=== PATIENT | female | born 1985 ===

== ENCOUNTER 2020-07-12 20:00 | Inpatient (IN) | payer BC ==
[2020-07-12] MEDS ORDERED: hydrALAZINE 20 MG/ML VIAL SLOW IVP PRN ×2 (20:39→21:00)
--- NOTE | 2020-07-12 20:50 | PDOC.LDHP ---
Labor and Delivery H&P Chief complaint: loss of fluid HPI: Patient is a 35 yo at 36.1 wga who presents with complaint of loss of fluid. She states she lost her mucous plug around 0600 this morning, then continued to see discharge and was wet each time she wiped throughout the day. She has felt some tightening of her lower abdomen occasionally, although this has been ongoing for a few weeks now. She follows with Dr. Stein, is currently rescheduled for a rLTCS on Aug 01 (SANDRA 08/08/20). Denies any vaginal bleeding, foul odor, burning, dysuria, chest pain, abdominal pain, headache, SOB. Patient denies any complications with this , says she passed her glucose test. Has not had GBS swab done yet. Is taking PNVs. Still feeling baby move. Current gestational age (weeks): 36 (36.1) Due date: 08/08/20 Dating criteria: last menstrual period Grav: 2 Para: 1 (1001) Current complications: none Past Medical History: denies Current medications: pre-manny vitamins Previous surgical history: low tranverse CS (x1) Allergies/Adverse Reactions: Allergies Allergy/AdvReac Type Severity Reaction Status Date / Time No Known Allergies Allergy Verified 07/12/20 20:47 Social history: none - Physical Exam Vital signs reviewed and normal: yes General: resting Lungs: nonlabored breathing Abdomen: NTTP Extremeties: no edema FHT: category 1 [place] contractions every: occasional - OB Labs Blood type: unknown RH: unknown Antibody Screen: unknown HIV: unknown RPR: unknown HEPSAg: unknown GBS: unknown - Assessment Patient is a 35 yo at 36.1 wga who presents with possible LOF: #Third Trimester , r/o ROM -SANDRA of 08/08/20, has scheduled rLTCS on 08/01/20 -follows with Dr. Stein -taking PNVs -sterile speculum exam reveals small amount of fluid, no overt pooling -will send amnisure swab -place on continuous external monitoring Dispo: Obtain amnisure. Place on monitoring. ADDENDUM, 07/12/20, 2100 Amnisure is positive. Suspect PROM. Will plan to admit and continue to monitor on L&D, ultimately will deliver with rLTCS. The above H&P was discussed with Dr. Manuel who agrees with plan. Inna Quick DO, PGY-2 Addendum - Attending - Attending Attestation Date/Time: 07/12/202200 I personally evaluated the patient and discussed the management with Dr. Quick. I agree with the History, Examination, Assessment and Plan documented above.
[2020-07-12 20:51] LABS: Amnisure Test RUPTURE DETECTED (No Rupture)
[2020-07-12 20:52] LABS: Amnisure Internal Control QC ACCEPTABLE (ACCEPTABLE)
[2020-07-12 20:54] VITALS: BMI 30.6
[2020-07-12] MEDS ORDERED: Azithromycin 500 MG in Sodium Chloride 0.9% 250 ML 250 ML IVPB SCH (21:00)
[2020-07-12] MEDS ORDERED: CEFAZOLIN 2 GM in Premix Bag 1 BAG IVPB SCH (21:00)
[2020-07-12] MEDS ORDERED: Promethazine HCl 25 MG/ML VIAL IM PRN (21:00)
[2020-07-12] MEDS ORDERED: Acetaminophen 500 MG TAB PO PRN (21:00)
[2020-07-12] MEDS ORDERED: Ondansetron PF 4 MG/2 ML Vial IVP PRN (21:00)
[2020-07-12] MEDS ORDERED: Butorphanol Tartrate 1 MG/ML VIAL SLOW IVP PRN (21:00)
[2020-07-12] MEDS ORDERED: Famotidine/PF 20 mg/2ml Vial SLOW IVP PRN (21:00)
[2020-07-12] MEDS ORDERED: Docusate 100 MG CAP PO PRN (21:00)
[2020-07-12] MEDS ORDERED: Bicitra 30 ML UDCUP PO PRN (21:00)
[2020-07-12] MEDS ORDERED: Lactated Ringer's 1,000 ML IV SCH (21:00)
[2020-07-12] MEDS ORDERED: Oxytocin 10 UNITS/ML VIAL ONE ×2 (21:54→23:57)
[2020-07-12] MEDS ORDERED: Ondansetron PF 4 MG/2 ML Vial ONE ×2 (21:54→23:57)
[2020-07-12] MEDS ORDERED: PHENYLEPHRINE-NS 100 MCG/ML 10 ML SYRINGE ONE ×2 (21:54→23:57)
[2020-07-12] MEDS ORDERED: Ketorolac Tromethamine 30 MG/ML VIAL ONE ×2 (21:54→23:57)
[2020-07-12] MEDS ORDERED: Dexamethasone 4 mg/ml Vial ONE ×2 (21:54→23:57)
[2020-07-12] MEDS ORDERED: Morphine PF 10 MG/10 ML VIAL ONE ×2 (21:55→23:57)
[2020-07-12] MEDS ORDERED: Fentanyl 100 MCG/2 ML VIAL ONE ×2 (21:55→23:57)
[2020-07-12 22:08] LABS: Hemoglobin 12.2 g/dL (12.0-16.0); Mean Corpuscular HGB CONC 34.2 g/dL (32.0-36.0); Mean Corpuscular Hemoglobin 30.1 pg (27.0-31.0); Mean Corpuscular Volume 87.9 fL (78.0-98.0); Mean Platelet Volume 9.7 fL (7.4-10.4); Platelet Count 215 thou/uL (130-400); RBC Distribution Width 11.6 % (11.5-14.5); Red Blood Cell (RBC) Count 4.06 mill/uL (4.20-5.40); White Blood Cell (WBC) Count 10.5 thou/uL (4.8-10.8)
[2020-07-12 22:46] LABS: Syphilis Antibody Nonreactive (Nonreactive); Syphilis Antibody Index 0.03 S/CO (<1.00 Non-Reactive)
[2020-07-12 22:47] LABS: HBSAg Index 0.28 S/CO (0-0.99); Hep B Surf Ag Non-Reactive S/CO (NonReactive)
[2020-07-13] MEDS ORDERED: Promethazine HCl 25 MG SUPP PR PRN (01:27)
[2020-07-13] MEDS ORDERED: diphenhydrAMINE 50 MG/ML VIAL IVP PRN (01:27)
[2020-07-13] MEDS ORDERED: Meperidine HCl/PF 25 MG/ML VIAL SLOW IVP PRN (01:27)
[2020-07-13] MEDS ORDERED: HYDROmorphone 2 MG/ML VIAL SLOW IVP PRN (01:27)
[2020-07-13] MEDS ORDERED: Ondansetron PF 4 MG/2 ML Vial IVP PRN ×2 (01:27→04:22)
[2020-07-13] MEDS ORDERED: Naloxone HCl 0.4 mg/ml Vial IV PRN (01:27)
[2020-07-13] MEDS ORDERED: Naloxone HCl 0.4 mg/ml Vial IVP PRN ×2 (01:27)
[2020-07-13] MEDS ORDERED: L&D-Morphine 4 MG/ML VIAL SLOW IVP PRN (01:27)
[2020-07-13] MEDS ORDERED: Ondansetron HCl/PF 4 MG/2 ML Vial IVP PRN (01:27)
[2020-07-13] MEDS ORDERED: Promethazine HCl 25 MG/ML VIAL IM PRN (01:27)
[2020-07-13] MEDS ORDERED: Communication Order-Pharmacy FS SCH (01:30)
--- NOTE | 2020-07-13 02:23 | PDOC.OPDEL ---
OB Operative/Delivery Note Delivery Dr/Surgeon: Scott Pre-Delivery Diagnosis: ruptured membrane Procedure/Post Delivery Dx: repeat low transverse CS Weeks gestation: 36 (36.1) Anesthesia: spinal - Findings A Sex: female - 1 min: 7 - 5 min: 9 - Additional Findings/Plan Placenta delivered: manual removal findings: low transverse hysterotomy without extension, normal uterus, normal tubes, normal ovaries Estimated blood loss: 380 mL Compilations/Other Findings: Date of Procedure: 07/13/2020 Attending Surgeon: Lynn Manuel MD Resident Surgeon: Inna Quick DO, PGY-2 Procedure: Repeat low transverse caesarean section Preoperative Diagnosis: 1) intrauterine at 36.1 weeks gestation 2)Previous x 1 3) PROM Postoperative Diagnosis: 1) intrauterine at 36.1 weeks gestation, now delivered 2)Previous x 2 3) PROM Anesthesia: spinal Indications: The patient is a 35 year old G2,P1001 female at 36.1 weeks gestation who presents for a repeat due to premature rupture of membranes and onset of labor. Procedure in Detail: After risks, benefits, and alternatives were explained to the patient, she gave informed consent. Pre-operative antibiotics included Cefazolin 2 gram IV and Azithromycin 500 mg IV. The patient was taken to the operating room and spinal anesthesia was initiated. She was placed in the supine position with a left tilt and prepped and draped in usual sterile fashion. A Pfannenstiel incision was made with a scalpel and carried down to the level of the fascia which was sharply nicked. The fascial cut was extended bilaterally with Garcia scissors. The inferior and superior edges of the cut fascial edges were elevated with Yoseph clamps and the underlying rectus muscles were sharply and bluntly dissected free. The recti were divided digitally and retracted manually. The peritoneum was entered using Metzembaum scissors and retracted using an Bentley-O retractor. A large adhesion was then taken down using the bovie cautery. A low transverse incision was made with the scalpel and the uterus was entered in the midline with the scalpel. Clear fluid was seen. The hysterotomy was extended manually. An additional area to the lateral left incision was extended using garcia scissors. The was noted to be vertex and was easily delivered by fundal pressure. Mouth and nares were bulb suctioned. Cord clamped and cut and grossly normal female was handed to waiting nurse. Cord blood was obtained. Placenta was manually extracted, found to be intact with 3 vessel cord and discarded. The endometrium was curetted with a dry lap. The uterus was closed with a running locking 1-Monocryl suture followed by a running non-locking 1-Monocryl partial imbricating suture. Following this hemostasis was noted. The abdomen was irrigated with saline and suctioned free of clots. The uterus was internalized and the hysterotomy was again noted to be hemostatic. The fascia was closed with a running non-locking 1-PDS suture. The subcutaneous tissue was irrigated and a few bleeders were bovie cauterized. The subcutaneous tissue was closed with simple interrupted 2-0 Plain gut suture. The skin was approximated with rachael and a pressure dressing was placed. All counts were correct. The patient tolerated the procedure well and was taken to the recovery room in stable condition. Estimated Blood Loss: 380 ml Complications: None Specimens: Cord blood sent to lab for blood type Findings: Grossly normal female infant with Apgars of 7 and 9. Grossly normal placenta with 3 vessel cord discarded. Drains: Luis to gravity draining clear urine Post delivery plan: routine recovery Addendum - Attending - Attending Attestation Date/Time: 07/13/20 [id number] I was present and scrubbed for the entire procedure.
[2020-07-13 03:01] LABS: SARS-CoV-2 PCR by NAA Not Detected (NotDetected)
[2020-07-13] MEDS ORDERED: diphenhydrAMINE 50 MG/ML VIAL ONE (04:18)
[2020-07-13] MEDS ORDERED: Bisacodyl 10 MG SUPP PR PRN (04:22)
[2020-07-13] MEDS ORDERED: Misoprostol 200 MCG TAB PR PRN (04:22)
[2020-07-13] MEDS ORDERED: NS / Oxytocin 40 units/1000ml 1,000 ML IV SCH (04:22)
[2020-07-13] MEDS ORDERED: diphenhydrAMINE 25 MG CAP PO PRN (04:22)
[2020-07-13] MEDS ORDERED: Simethicone Chewable 80 MG TAB PO PRN (04:22)
[2020-07-13] MEDS ORDERED: Acetaminophen 325 MG TAB PO PRN (04:22)
[2020-07-13] MEDS ORDERED: Lanolin Ointment 7 GM TUBE TOP PRN (04:22)
[2020-07-13] MEDS ORDERED: hydrALAZINE 20 MG/ML VIAL SLOW IVP PRN (04:22)
[2020-07-13] MEDS ORDERED: NS w/ Oxytocin 30 units 500 ML IVPB SCH (05:45)
[2020-07-13] MEDS: Ketorolac Tromethamine 30 MG/ML VIAL IVP SCH ×3 (08:16→19:55)
[2020-07-13] MEDS: Prenatal Vitamin 1 TAB PO SCH (08:43)
[2020-07-13] MEDS: Docusate Calcium (SURFAK) 240 MG CAP PO SCH ×2 (08:43→19:55)
[2020-07-13] MEDS: Ferrous Sulfate 325 MG TAB PO SCH ×2 (08:43→19:44)
[2020-07-13] MEDS ORDERED: Adacel (T-DAP) 0.5 ML SYRINGE IM ONE (09:00)
[2020-07-13] MEDS ORDERED: HYDROcodone/Acetaminophen 5/325 mg Tablet PO PRN (13:30)
[2020-07-14] MEDS: Ketorolac Tromethamine 30 MG/ML VIAL IVP SCH (02:06)
[2020-07-14] MEDS ORDERED: Ibuprofen 800 MG TAB PO SCH (06:00)
[2020-07-14 06:18] LABS: Hemoglobin 9.7 g/dL (12.0-16.0); Mean Corpuscular HGB CONC 33.2 g/dL (32.0-36.0); Mean Corpuscular Volume 87.1 fL (78.0-98.0); Mean Platelet Volume 9.5 fL (7.4-10.4); Platelet Count 170 thou/uL (130-400); RBC Distribution Width 11.8 % (11.5-14.5); Red Blood Cell (RBC) Count 3.35 mill/uL (4.20-5.40); White Blood Cell (WBC) Count 12.3 thou/uL (4.8-10.8)
[2020-07-14] MEDS: Docusate Calcium (SURFAK) 240 MG CAP PO SCH ×2 (08:28→20:57)
[2020-07-14] MEDS: Ibuprofen 800 MG TAB PO SCH ×3 (08:28→23:23)
[2020-07-14] MEDS: Ferrous Sulfate 325 MG TAB PO SCH ×2 (08:28→20:57)
[2020-07-14] MEDS: Prenatal Vitamin 1 TAB PO SCH (08:28)
[2020-07-14] MEDS: HYDROcodone/Acetaminophen 5/325 mg Tablet PO PRN ×3 (11:46→20:57)
--- NOTE | 2020-07-14 19:14 | PDOC.PP ---
Post Progress Note Post Day #: 1 PO intake tolerated: yes Flatus: yes Ambulation: yes Vital Signs (12 hours) Temp Pulse Resp BP Pulse Ox 07/14/20 15:59 98.2 F 89 18 159/76 H 99 07/14/20 11:33 98.5 F 78 18 140/72 98 07/14/20 08:14 98.0 F 91 20 124/73 97 Weight Weight 173 lb - Physical Examination General: NAD Respiratory: non-labored breathing Abdominal: no distention, appropriately TTP Fundus firm & at: umb Skin: CS incision dry & intact Neurological: no gross focal deficits Psychiatric: normal affect Result Diagrams: 07/14/20 05:48 Additional Labs: Post Labs Hep Bs Antigen Non-Reactive S/CO (NonReactive) 07/12/20 21:57 Blood Type O POSITIVE 07/12/20 23:23 - Assessment/Plan POD1 s/p RCS VSSAF Doing well pain controlled, met milestones Pt upset as she was just told infant going to nicu for apneic episodes Cont postop care, poss DC home tomorrow.
--- NOTE | 2020-07-15 07:02 | PDOC.PP ---
Post Progress Note Post Day #: 2 PO intake tolerated: yes Flatus: yes Ambulation: yes Vital Signs (12 hours) Temp Pulse Resp BP Pulse Ox 07/14/20 19:40 98.4 F 82 18 139/90 99 Weight Weight 173 lb - Physical Examination General: NAD Respiratory: non-labored breathing Abdominal: no distention, appropriately TTP Fundus firm & at: umb-2 Extremities: negative homans (B) Skin: CS incision dry & intact Neurological: no gross focal deficits Psychiatric: normal affect Result Diagrams: 07/14/20 05:48 Additional Labs: Post Labs Hep Bs Antigen Non-Reactive S/CO (NonReactive) 07/12/20 21:57 Blood Type O POSITIVE 07/12/20 23:23 - Assessment/Plan POD2 s/p RCS VSSAF Met all postop milestones Postop blood loss anemia, asymptomatic, cont PNV on DC Breastpumping, baby in NICU Rh pos RImm DC to B&B
[2020-07-15] MEDS: Docusate Calcium (SURFAK) 240 MG CAP PO SCH ×2 (07:46→20:20)
[2020-07-15] MEDS: HYDROcodone/Acetaminophen 5/325 mg Tablet PO PRN ×3 (07:47→16:31)
[2020-07-15] MEDS: Ferrous Sulfate 325 MG TAB PO SCH ×2 (07:47→20:20)
[2020-07-15] MEDS: Ibuprofen 800 MG TAB PO SCH ×3 (07:47→23:13)
[2020-07-15] MEDS: Prenatal Vitamin 1 TAB PO SCH (07:47)
[2020-07-16] MEDS: Ferrous Sulfate 325 MG TAB PO SCH (08:13)
[2020-07-16] MEDS: Docusate Calcium (SURFAK) 240 MG CAP PO SCH (08:13)
[2020-07-16] MEDS: Prenatal Vitamin 1 TAB PO SCH (08:13)
[2020-07-16] MEDS: Ibuprofen 800 MG TAB PO SCH (08:13)
[2020-07-16 08:19] VITALS: BP 132/78; TEMP 97.7
[2020-07-16] MEDS: HYDROcodone/Acetaminophen 5/325 mg Tablet PO PRN (12:45)
== END 2020-07-16 12:48 | disposition home or self-care (01) | DRG 786 ==
LOC: L&D/OP 20:00 → L&D 21:01 → 3SE 07-13 04:32
PROVIDERS: ADMIT Student in an Organized Health Care Education/Training Program; ATTEND Student in an Organized Health Care Education/Training Program
PROC: 10D00Z1 Extraction of Products of Conception, Low, Open Approach (ICD-10-PCS; principal; 2020-07-13)
DX: O34.211 Maternal care for low transverse scar from previous cesarean delivery (principal); O60.14X0 Preterm labor third trimester with preterm delivery third trimester, not applicable or unspecified; D62 Acute posthemorrhagic anemia; O42.013 Preterm premature rupture of membranes, onset of labor within 24 hours of rupture, third trimester; Z37.0 Single live birth; Z3A.36 36 weeks gestation of pregnancy; O90.81 Anemia of the puerperium; Z20.822 Contact with and (suspected) exposure to COVID-19
CPT/HCPCS: 36415; 51702; 84112; 85027; 86780; 86850; 86900; 86901; 87340; 87635; 99285; J1100; J1200; J1885; J2270; J2405; J2590; J3010; U0003; U0005